=== PATIENT | female | born 1955 | race Caucasian/White ===

== ENCOUNTER 2018-06-07 13:36 | Emergency (ER) | payer MEDICARE, OTHER ==
[~2018-06-07] VITALS: Ht 154.9 cm; Wt 77.2 kg
--- NOTE | 2018-06-07 15:58 | NUR ---
DR LEMA IS PRIMARY PHYSICIAN
[2018-06-07] MEDS ORDERED: diphenhydrAMINE 50 mg/ml inj IM ONE (16:25)
[2018-06-07] MEDS ORDERED: gabapentin 300mg capsule PO ONE (16:25)
[2018-06-07 17:30] VITALS: BP 122/69
== END 2018-06-07 18:16 | disposition home or self-care (01) ==
LOC: ER 13:37
DX: G43.909 Migraine, unspecified, not intractable, without status migrainosus (principal); Z88.6 Allergy status to analgesic agent; Z88.8 Allergy status to other drugs, medicaments and biological substances
CPT/HCPCS: 96372; 99284; J1200